=== PATIENT | female | born 1965 | race Caucasian/White ===

== ENCOUNTER 2017-05-19 06:48 | Day surgery (SDC) | payer MEDICAID ==
[2017-05-17 17:29] LABS: BASOPHILS # (AUTO) 0.1 K/uL (0.00-0.22); BASOPHILS % (AUTO) 1.5 % (0.0-2.0); EOSINOPHILS # (AUTO) 0.4 K/uL (0-0.4); EOSINOPHILS % (AUTO) 4.4 % (0.0-4.0); HEMATOCRIT 40.5 % (36-48); HEMOGLOBIN 13.3 g/dL (12.0-16.0); LYMPHOCYTES # (AUTO) 1.7 K/uL (2.5-16.5); LYMPHOCYTES % (AUTO) 19.9 % (20.5-51.1); MEAN CORPUSCULAR HEMOGLOBIN 28 pg (27-31); MEAN CORPUSCULAR HGB CONC 33 g/dL (33-37); MEAN CORPUSCULAR VOLUME 87 fL (80-94); MONOCYTES # (AUTO) 0.7 K/uL (0.8-1.0); MONOCYTES % (AUTO) 7.8 % (1.7-9.3); NEUTROPHILS # (AUTO) 5.5 K/uL (1.8-7.7); NEUTROPHILS % (AUTO) 66.4 % (42.2-75.2); PLATELET COUNT (AUTO) 362 K/uL (140-450); RED BLOOD CELL COUNT(AUTO) 4.68 MIL/uL (4.20-5.40); RED CELL DISTRIBUTION WIDTH 13.8 % (11.6-13.7); WHITE BLOOD COUNT (AUTO) 8.4 K/uL (4.8-10.8)
[2017-05-17 17:42] LABS: ALBUMIN 3.9 g/dL (3.4-5.0); ANION GAP 14.6 (8-16); CARBON DIOXIDE 24.9 mmol/L (21-32); CREATININE 0.9 mg/dL (0.6-1.3); POTASSIUM 3.5 mmol/L (3.5-5.1); TOTAL BILIRUBIN 0.3 mg/dL (0.0-1.0)
[~2017-05-19] VITALS: Ht 167.6 cm; Wt 104.3 kg
[2017-05-19] MEDS ORDERED: BUPIVACAINE-MPF 0.25% 30 ML VIAL INJ ONE (07:13)
[2017-05-19] MEDS ORDERED: ceFAZolin 1,000 MG VIAL ONE (07:13)
[2017-05-19] MEDS ORDERED: LIDOCAINE 1% 50 ML ONE (07:13)
[2017-05-19] MEDS ORDERED: KETOROLAC 30 MG/ML VIAL IVP ONE (07:28)
[2017-05-19] MEDS ORDERED: PROPOFOL 200 MG/20 ML VIAL IV ONE ×2 (07:28)
[2017-05-19] MEDS ORDERED: fentaNYL 0.05 MG/ML VIAL ONE (07:47)
[2017-05-19] MEDS ORDERED: MIDAZOLAM 2 MG/2 ML VIAL ONE (07:48)
[2017-05-19] MEDS ORDERED: ONDANSETRON 4 MG/2 ML VIAL IVP PRN (08:15)
[2017-05-19] MEDS ORDERED: HYDROmorphone 1 MG/ML AMP IVP PRN ×2 (08:15→09:00)
[2017-05-19] MEDS ORDERED: HYDROcodone/APAP 5/325 MG 1 TAB TAB PO PRN (09:00)
[2017-05-19] MEDS ORDERED: ONDANSETRON 4 MG/2 ML VIAL IV PRN (09:00)
[2017-05-19] MEDS ORDERED: MORPHINE SULFATE 4 MG/ML SYR IV PRN (09:00)
[2017-05-19] MEDS ORDERED: MORPHINE SULFATE 2 MG/ML SYR IVP PRN (09:00)
== END 2017-05-19 11:10 | disposition home or self-care (01) ==
LOC: MOR 06:48 → MMU 06:49 → MOR 11:10
PROVIDERS: ATTEND Surgery
DX: C50.912 Malignant neoplasm of unspecified site of left female breast (principal); E66.9 Obesity, unspecified; J45.909 Unspecified asthma, uncomplicated; I13.10 Hypertensive heart and chronic kidney disease without heart failure, with stage 1 through stage 4 chronic kidney disease, or unspecified chronic kidney disease; N18.9 Chronic kidney disease, unspecified; E11.22 Type 2 diabetes mellitus with diabetic chronic kidney disease; K21.9 Gastro-esophageal reflux disease without esophagitis; F17.210 Nicotine dependence, cigarettes, uncomplicated; Z85.028 Personal history of other malignant neoplasm of stomach
CPT/HCPCS: 36415; 36561; 71010; 76000; 80053; 85025; 86886; 86900; 86901; 93005; C1751; J0690; J1644; J1885; J2001; J2250; J2704; J3010; J3490; J7030; J7060; J7120; Q0092

== ENCOUNTER 2019-01-01 06:03 | Day surgery (SDC) | payer OTHER ==
[~2019-01-01] VITALS: Ht 167.6 cm; Wt 108.9 kg
[2019-01-01] MEDS ORDERED: TAMO20TA3 PO (07:55)
[2019-01-01] MEDS ORDERED: NERA40TA PO (07:57)
[2019-01-01] MEDS ORDERED: OSTEOPOROSIS MED (07:59)
[2019-01-01] MEDS ORDERED: BUPIVACAINE-MPF/EPI 0.5% 30 ML VIAL INJ ONE (09:12)
[2019-01-01] MEDS ORDERED: LIDOCAINE/EPI MPF 1%1:200000 30 ML VIAL INJ ONE (09:12)
[2019-01-01] MEDS ORDERED: BUPIVACAINE-MPF 0.25% 30 ML VIAL INJ ONE (10:01)
[2019-01-01] MEDS ORDERED: LIDOCAINE 1% 500 MG/50 ML VIAL ONE (10:01)
[2019-01-01] MEDS ORDERED: MORPHINE SULFATE 4 MG/ML SYR IV PRN (10:35)
[2019-01-01] MEDS ORDERED: ONDANSETRON 4 MG/2 ML VIAL IV PRN (10:35)
[2019-01-01] MEDS ORDERED: HYDROcodone/APAP 5/325 MG 1 TAB TAB PO PRN (10:35)
[2019-01-01] MEDS ORDERED: HYDROmorphone 1 MG/ML AMP IVP PRN (10:35)
[2019-01-01] MEDS ORDERED: MORPHINE SULFATE 2 MG/ML SYR IVP PRN (10:35)
== END 2019-01-01 11:35 | disposition home or self-care (01) ==
LOC: MMU 06:03 → MOR 06:03
PROVIDERS: ATTEND Surgery
DX: Z45.2 Encounter for adjustment and management of vascular access device (principal); I12.9 Hypertensive chronic kidney disease with stage 1 through stage 4 chronic kidney disease, or unspecified chronic kidney disease; N18.9 Chronic kidney disease, unspecified; K21.9 Gastro-esophageal reflux disease without esophagitis; F17.210 Nicotine dependence, cigarettes, uncomplicated; E11.22 Type 2 diabetes mellitus with diabetic chronic kidney disease; J45.909 Unspecified asthma, uncomplicated; M81.0 Age-related osteoporosis without current pathological fracture; Z90.12 Acquired absence of left breast and nipple; Z85.3 Personal history of malignant neoplasm of breast; Z79.899 Other long term (current) drug therapy; Z79.810 Long term (current) use of selective estrogen receptor modulators (SERMs); Z98.890 Other specified postprocedural states; Z80.3 Family history of malignant neoplasm of breast; Z80.0 Family history of malignant neoplasm of digestive organs
CPT/HCPCS: 36590; 71045; J0690; J2001; J3490; J7060